=== PATIENT | male | born 1990 | race Caucasian/White ===

== ENCOUNTER 2016-08-01 23:20 | Outpatient (CLI) | END 2016-08-01 23:21 | LOC: AMBL 23:20 | PROVIDERS: ATTEND Emergency Medicine | DX: S06.9X9A Unspecified intracranial injury with loss of consciousness of unspecified duration, initial encounter (principal); R09.2 Respiratory arrest; I46.9 Cardiac arrest, cause unspecified; H57.04 Mydriasis; V86.39XA Unspecified occupant of other special all-terrain or other off-road motor vehicle injured in traffic accident, initial encounter ==